=== PATIENT | female | born 2000 | race Two or more races ===

== ENCOUNTER 2025-08-27 10:37 | Emergency (ER) | payer OTHER ==
[~2025-08-27] VITALS: Ht 154.9 cm; Wt 77.1 kg
[2025-08-27] MEDS ORDERED: KETOROLAC TROMETHAMINE 30 MG VIAL IU ONE (12:30)
[2025-08-27] MEDS ORDERED: METHYLPREDNISOLONE SOD SUCC 125 MG VIAL IV ONE (12:30)
[2025-08-27] MEDS ORDERED: HYDROCODONE/CHLORPHEN P-STIREX 5 ML ML PO ONE (12:30)
[2025-08-27] MEDS ORDERED: ACETAMINOPHEN 500 MG GEL..CAP PO ONE ×2 (12:30→14:03)
[2025-08-27] MEDS ORDERED: KETOROLAC TROMETHAMINE 30 MG VIAL ONE (14:03)
[2025-08-27] MEDS ORDERED: METHYLPREDNISOLONE SOD SUCC 125 MG VIAL ONE (14:04)
[2025-08-27 14:39] LABS: BASO % 0.4 % (0.1-1.2); EOS # 0.00 (0.04-0.54); EOS % 0.0 % (0.7-7.0); LYMPH # 0.76 (1.18-3.74); LYMPH % 13.5 % (19.3-53.1); MEAN PLATELET VOLUME 12.00 fl (9.4-12.4); MONO # 0.71 (0.24-0.82); NEUT # 4.13 (1.56-6.13); NEUT % 73.1 % (34.0-71.1); RED CELL DISTRIBUTION WIDTH 12.4 % (11.6-14.4)
[2025-08-27 14:40] LABS: MONO % 12.6 % (4.7-12.5)
[2025-08-27 15:01] LABS: COVID-19 AG NEGATIVE (NEGATIVE)
[2025-08-27] MEDS ORDERED: PEPCID AC20 MG PO (16:02)
[2025-08-27] MEDS ORDERED: ZITHROMAX500 MG PO (16:02)
[2025-08-27] MEDS ORDERED: MUCINEX1200 MG PO (16:02)
[2025-08-27 17:20] VITALS: BP 113/77; O2SAT 98
== END 2025-08-27 17:20 | disposition home or self-care (01) ==
LOC: ER 10:37
PROVIDERS: General Practice
DX: B34.9 Viral infection, unspecified (principal); Z20.822 Contact with and (suspected) exposure to COVID-19